=== PATIENT | male | born 1990 | race Native Hawaiian/Other Pacific Islander ===

== ENCOUNTER 2018-06-18 20:30 | Emergency (ER) | payer SELFPAY ==
[~2018-06-18] VITALS: Ht 175.3 cm; Wt 61.2 kg
--- NOTE | 2018-06-18 21:30 | NUR ---
URINE COLLECTED AND SENT TO LAB
[2018-06-18 21:57] LABS: BASOPHILS # (AUTO) 0.1 /CMM (0.0-0.2); EOSINOPHILS % (AUTO) 0.4 % (0.0-6.0); HEMATOCRIT 46 % (39-51); HEMOGLOBIN 15.4 g/dL (13.5-17.5); LYMPHOCYTES # (AUTO) 2.1 /CMM (0.8-4.8); LYMPHOCYTES % (AUTO) 27.8 % (20.0-44.0); MEAN CORPUSCULAR HGB CONC 33 g/dl (31.0-36.0); MEAN CORPUSCULAR VOLUME 97 fL (80-96); MONOCYTES # (AUTO) 0.8 /CMM (0.1-1.30); MONOCYTES % (AUTO) 11.1 % (2.0-12.0); NEUTROPHILS # (AUTO) 4.5 /CMM (1.8-8.9); NEUTROPHILS % (AUTO) 59.7 % (43.0-81.0); PLATELET COUNT (AUTO) 302 /CMM (150-450); RED BLOOD CELL COUNT(AUTO) 4.77 MIL/uL (4.5-6.0); WHITE BLOOD COUNT (AUTO) 7.5 K/uL (4.3-11.0)
[2018-06-18] MEDS ORDERED: IV NS 0.9% 1,000 ML BAG IV ONE (22:00)
--- NOTE | 2018-06-18 22:00 | NUR ---
Pt BIB MOTHER FROM HOME. C/O WEAKNESS. PER Pt's MOTHER's STATEMENT, Pt HAS BEEN HAVING POOR INTAKE FOR THE PAST 2 DAYS AND HAS BEEN MORE DEPRESSED FOR THE PAST WEEK. Pt DENIES -SOB, -CP, -HEADACHE, -V. +N. Pt HAS ALREADY BEEN SEEN BY CHEMICAL SPRAYER. Pt IS RESTING IN BED AT THIS TIME. VERY LETHARGIC BUT IS ABLE TO FOLLOW COMMANDS AND ANSWER QU. WILL CONTINUE TO MONITOR Pt's CONDITION.
[2018-06-18 22:06] LABS: CALCIUM, SERUM 9.1 mg/dL (8.5-10.1); POTASSIUM 4.1 mmol/L (3.5-5.1)
[2018-06-18 22:12] LABS: BILIRUBIN,TOTAL 0.1 mg/dL (0.2-1.0); TOTAL PROTEIN, SERUM 7.4 g/dL (6.4-8.2)
--- NOTE | 2018-06-18 22:40 | NUR ---
iv access started on Lt upper arm #[id number]. started on IVF NS.
--- NOTE | 2018-06-18 23:16 | NUR ---
DURING SWALLOW EVAL EXAM ASKED THE Pt's MOTHER TO STEP OUTSIDE FOR A MOMENT. SPOKE IN PRIVATE WITH THE Pt ALONG WITH P[employer] CONSULTANT AT BEDSIDE. ASKED Pt TO BE HONEST AND ASKED IF HE DID ANY DRUGS TODAY BEFORE COMING TO THE ER, AND Pt ADMITTED THAT HE SMOKED SOME DRUGS EARLIER TODAY BUT WASNT SURE WHAT IT WAS, THINKS IT WAS METH. DID THE SWALLOW EVAL, Pt WAS ABLE TO FOLLOW COMMANDS AND DRINK FLUIDS WITHOUT CHOKING. Pt IS STILL LETHARGIC, BUT ABLE TO COMMUNICATE AND ANSWER QUESTIONS. INFORMED HEAD OF MATHEMATICS [employer] OF THE UPDATE INFO THAT THE Pt TOOK DRUGS EARLIER TODAY.
--- NOTE | 2018-06-19 00:35 | NUR ---
Patient discharged to home in stable condition. Written and verbal after care instructions given. Patient verbalizes understanding of instruction. Patient left on wheelchair. No s/s of acute distress or sob noted. Pt was accompanied by staff member to help transport pt safely to the car. Pt's mother is with pt. All needs met and attended to. Iv access on SARAH removed, secured with gauze and tape no signs of bleeding noted. vs stable.
[2018-06-19 01:02] VITALS: BP 132/90
== END 2018-06-19 01:03 | disposition home or self-care (01) ==
LOC: ER 20:32
DX: F19.10 Other psychoactive substance abuse, uncomplicated (principal); E86.0 Dehydration; F17.200 Nicotine dependence, unspecified, uncomplicated
CPT/HCPCS: 36415; 80048; 80076; 85025; 96360; 99283; 99406; A4606; J7030; Z7610